=== PATIENT | female | born 1950 | race Caucasian/White ===

== ENCOUNTER → 2023-08-12 | Outpatient (CLI) | payer OTHER ==
[~2023-08-12] VITALS: Ht 165.1 cm; Wt 65.9 kg
[~2023-08-12] MED LIST: HOME MED LIST COMPLETE! XX SCH; LETR2.5T2 PO; LIDOCAINE 1% MDV 20ML VIAL As Ordered ONE; LORA1TAB23 PO; MYRB25TA PO
[2023-08-12 08:00] VITALS: TEMP 97.6
[2023-08-12 11:00] VITALS: BP 165/71; O2SAT 99
== END ==
LOC: M IRPRO 07:48
PROVIDERS: ATTEND Internal Medicine Critical Care Medicine
DX: R91.8 Other nonspecific abnormal finding of lung field (principal); J95.811 Postprocedural pneumothorax